=== PATIENT | male | born 1960 | race Caucasian/White ===

== ENCOUNTER 2021-05-09 18:59 | Emergency (ER) | payer BC ==
[~2021-05-09] VITALS: Ht 182.9 cm; Wt 95.2 kg
== END 2021-05-09 19:42 | disposition home or self-care (01) ==
LOC: ER 18:59
DX: U07.1 COVID-19 (principal)
CPT/HCPCS: 96372; 99282-25; J1885

== ENCOUNTER → 2021-06-24 | Outpatient (CLI) | payer BC ==
[~2021-06-24] MED LIST: AMOCLA500 PO; BUME2 PO; Doxycycline Mo100 M1 PO; MELA3 PO; METO25ER PO; PANT40 PO; VISBIOME 112.51 EACH PO; XARELTO20 MG PO
[2021-06-24 11:14] LABS: Creatinine Urine 54.6 mg/dL (27.00-270.00); Protein, Urine Quantitative 10.7 mg/dL (0.0-11.9)
[2021-06-24 11:18] LABS: Microalbumin, Urine Quant. 13.7 mg/L (0.000-20.000)
== END ==
LOC: LAB SHORT 08:00
PROVIDERS: Internal Medicine Nephrology
DX: E11.22 Type 2 diabetes mellitus with diabetic chronic kidney disease (principal); N18.2 Chronic kidney disease, stage 2 (mild); D63.1 Anemia in chronic kidney disease; E55.9 Vitamin D deficiency, unspecified; E11.21 Type 2 diabetes mellitus with diabetic nephropathy; R76.9 Abnormal immunological finding in serum, unspecified; R94.5 Abnormal results of liver function studies; R94.6 Abnormal results of thyroid function studies; G60.9 Hereditary and idiopathic neuropathy, unspecified; D52.8 Other folate deficiency anemias; D50.9 Iron deficiency anemia, unspecified
CPT/HCPCS: 81050; 82043; 82570; 84156